=== PATIENT | female | born 1985 | race Caucasian/White ===

== ENCOUNTER 2017-01-21 21:00 | Inpatient (IN) | payer MEDICAID ==
--- NOTE | ~2017-01-21 | DS ---
Unit #: [id number] #: [id number] Patient: VIOLET COREAS [id number] [facility] [address] [place] [address] [id number] MR#: [id number] NAME: VIOLET COREAS ROOM: [facility] Age: 31 Sex: F Admission Date: 01/21/2017 : 1985 Discharge Date: 01/24/2017 Attending Physician: Federico Giron M.D. Primary Care Physician: Primary Care Physician No DISCHARGE SUMMARY REASON FOR ADMISSION Detox. DIAGNOSTIC STUDIES LABORATORY RESULTS: Urine drug screen positive for opioid. HOSPITAL COURSE The patient was admitted to inpatient unit on 01/21/2017 and discharged on 01/24/2017. The patient was treated on the inpatient unit with group therapy, individual therapy, medication management, detox protocol, and detox monitoring. The patient was responsive to treatment. Subsequently, the patient was discharged with a plan to follow up in outpatient clinic. DISCHARGE MEDICATIONS Flagyl 500 mg t.i.d. for 4 days for vaginal infection, Viibryd 40 mg daily for depression, Topamax 100 mg b.i.d. for mood stabilization, Desyrel 50 mg at bedtime for sleep. DISCHARGE DIAGNOSES Psychiatric: Opioid use disorder, severe, F11.20; major depressive disorder, recurrent, severe, F33.2. Secondary diagnosis: Deferred. Medical diagnosis: None. Stressors: Psychosocial stressors. DISCHARGE INSTRUCTIONS The patient to follow up in outpatient clinic as per criminal justice social worker. CONDITION ON DISCHARGE The patient was pleasant and cooperative. Denied any psychotic symptom or any suicidal ideation. PROGNOSIS Guarded. DIET AND ACTIVITY As tolerated. Dictated by... Unit #: [id number] #: [id number] Patient: VIOLET COREAS Krystal ShahC/francisco TD: 01/24/2017 23:15 JOB #: [id number] DISCHARGE SUMMARY Page 1 of 1 X Federico Giron MD DISCHARGE SUMMARY
--- NOTE | ~2017-01-21 | CO ---
Unit #: [id number] #: [id number] Patient: VIOLET COREAS [id number] [place] [address] [id number] MR#: [id number] NAME: VIOLET COREAS ROOM: P208 Age: 31 Sex: F Admission Date: 01/21/2017 : 1985 Attending Physician: Federico Giron M.D. Primary Care Physician: Primary Care Physician No Consultation Date: 01/22/2017 CONSULTATION REPORT CISCO Meza is a 31-year-old who complains of a vaginal discharge that is foul smelling. She describes it as "fishy." The patient was started on Flagyl 500 mg one p.o. t.i.d. x7 days. She knows to follow up with PCP. Dictated by... Michelle Stevens P.A.-C. for Krystal Emanuel/francisco TD: 01/25/2017 14:34 JOB #: [id number] CONSULTATION REPORT Page 1 of 1 X Michelle Stevens CONSULTATION REPORT
--- NOTE | ~2017-01-21 | PA ---
Unit #: [id number] #: [id number] Patient: VIOLET COREAS [id number] [place] [address] [id number] MR#: [id number] NAME: VIOLET COREAS ROOM: P208 Age: 31 Sex: F Admission Date: 01/21/2017 : 1985 Date of Assessment: Attending Physician: Federico Giron M.D. Admitting Physician: Federico Giron M.D. PSYCHIATRIC ASSESSMENT INFORMANTS The patient's reliability, fair; chart reliability, good. CHIEF COMPLAINT Detox from heroin, history of depression. HISTORY OF PRESENT ILLNESS Ms. Violet Coreas is a 31-year-old female, presented with the above-mentioned complaint. The patient has a history of previous inpatient treatment for substance abuse in [facility] [place]. The patient presented with heroin abuse, reportedly using 2 g a day. The patient reported relapse after 11 months of sobriety. The patient reports that she found out that involuntarily lost her paternal rights for her 2 daughters. The patient indicated that her insurance terminated and she was not able to get her medication. The patient reported multiple stress, feeling sad and depressed. The patient reported drinking vodka and whisky about one pint. The patient denied any suicidal ideation or plan. Denied any homicidal ideation or psychotic symptom. Needing inpatient admission at this time for psychiatric stabilization. PAST PSYCHIATRIC HISTORY Remarkable for history of outpatient treatment and inpatient treatment as mentioned. FAMILY HISTORY AND SOCIAL HISTORY Poor support system. No legal problem or any history of abuse. MEDICAL HISTORY Unremarkable for any chronic medical condition. Musculoskeletal; muscle strength and tone, no atrophy or abnormal movement. Gait normal. MEDICATION HISTORY The patient is on Viibryd 40 mg daily for depression, Topamax 100 mg b.i.d. for mood stabilization. ALLERGIES No known drug allergies. SUBSTANCE ABUSE HISTORY The patient reported tobacco use, age of onset 18; alcohol, age of onset 18; marijuana, age of onset 27; crack cocaine, age of onset 28; opioid, age of onset 27; longest period of sobriety 11 months and last sobriety in September. The patient reported history of withdrawal symptoms such as runny nose, nervousness, irritability, diarrhea, depressed mood, Unit #: [id number] #: [id number] Patient: VIOLET COREAS irritability, history of IV drug abuse. No history of HIV, hepatitis, or blackouts. REVIEW OF SYSTEMS HEENT: Eyes, clear. Ears, nose, mouth, and throat; clear. CARDIOVASCULAR: Unremarkable. RESPIRATORY: Unremarkable. GI: Unremarkable. : Unremarkable. SKIN: Unremarkable. LYMPH NODE: Unremarkable. NEUROLOGIC: Unremarkable. ENDOCRINE: Unremarkable. HEMATOLOGIC: Unremarkable. ALLERGIC/IMMUNOLOGIC: Unremarkable. MUSCULOSKELETAL: Muscle strength and tone, no atrophy or abnormal movement. Gait normal. MENTAL STATUS EXAMINATION CONSTITUTIONAL: Measurement of vital signs; temperature 98.3, pulse 64, respirations 17, blood pressure 94/54; height 5 feet 6 inches, weight 130 pounds. GENERAL APPEARANCE: The patient dressed casually, thin built. No facial deformity noted. MUSCULOSKELETAL: Please see above. PSYCHIATRIC EXAMINATION Description of speech; regular rate, coherent. Description of thought process, goal directed. Description of association, intact. Description of abnormal psychotic thinking; the patient denied any hallucination or delusions or any suicidal or homicidal ideation. Withdrawal symptoms from opioids. Description of the patient's judgment; concerning everyday activity, poor. Social situation, poor. Concerning psychiatric condition, poor. Complete mental status examination; oriented in time, place, and person. Recent and remote memory, fair. Attention span and concentration, fair. Language, able to name object and repeat phrases. Fund of knowledge, aware of current event and passive vocabulary intact. Mood and affect, sad and dysphoric. Insight and judgment, fair to poor. ASSETS AND LIABILITIES (1) . ADMITTING DIAGNOSES Psychiatric: Opioid use disorder, severe, F11.20; major depressive disorder, recurrent, severe, F33.2. Secondary diagnosis: Deferred. Medical diagnosis: None. Stressors: Psychosocial stressors. PSYCHIATRIC PLAN AND TREATMENT GOAL 1. Advised to admit the patient on the inpatient unit. Provide safe, supportive, and structured environment. 2. Ordered labs; CBC, CMP, UA, and UDS. Unit #: [id number] #: [id number] Patient: VIOLET COREAS 3. Precaution for detox protocol and detox monitoring. 4. Advised to resume home medication. The patient to attend all the programing on the inpatient unit with group therapy, individual therapy, family session. Treatment goal to attain euthymic mood, gain insight into her problem, and learn coping skills. DISCHARGE PLAN Plan to stabilize the patient and consider followup in outpatient program. ESTIMATED LENGTH OF STAY 5 days. ADDITIONAL JOB #: [id number] Dictated by... Krystal Shah/francisco TD: 01/23/2017 01:50 JOB #: [id number] PSYCHIATRIC ASSESSMENT Page 1 of 1 X Federico Giron MD X PSYCHIATRIC ASSESSMENT
--- NOTE | ~2017-01-21 | PN ---
Unit #: [id number] #: [id number] Patient: VIOLET AMOS [id number] [facility] [address] [place] [address] [id number] I MR#: [id number] NAME: VIOLET AMOS ROOM: P208 Age: 31 Sex: F Admission Date: 01/21/2017 : 1985 Attending Physician: Federico Giron M.D. Admitting Physician: Federico Giron M.D. Primary Care Physician: Primary Care Physician Cira ALVES NOTES DATE OF SERVICE 01/22/2017 DISCUSSION Violet Amos is a 31-year-old female seen on 01/22/2017. The patient interviewed, chart reviewed. Obtained information from nursing staff. The patient compliant, cooperative. Mood sad, dysphoric, anxious. He reported having withdrawal symptom. Anxious, nervous, restlessness. The patient's vital signs: 97.9, 79, 17, 122/82. Complete Review of Systems: Unremarkable. MENTAL STATUS EXAMINATION General Appearance: The patient dressed casually. Thin built. Attention span, concentration: Fair. Oriented in time, place, and person. Mood and affect: Sad, dysphoric. Speech: Regular rate. Thought process: Coherent. The patient denied any thoughts of harming self or others or any psychotic symptom. Recent and remote memory: Fair. Insight and judgment: Fair to slightly impaired. DIAGNOSES PSYCHIATRIC: Opiate use disorder, severe. Mood disorder. Major depressive disorder, recurrent. ASSESSMENT/PLAN Advised to continue with current medication and therapeutic protocol. If needed, consider further adjustment of medication. Dictated by... Krystal Shah/marcel TD: 01/23/2017 14:15 JOB #: [id number] Unit #: [id number] #: [id number] Patient: VIOLET AMOS MARIYAKAY PROGRESS NOTES Page 1 of 1 X Federico Giron MD PROGRESS NOTE
--- NOTE | ~2017-01-21 | HP ---
Unit #: [id number] #: [id number] Patient: VIOLET COREAS [id number] [place] [address] [id number] I MR#: [id number] NAME: VIOLET COREAS ROOM: P208 Age: 31 Sex: F Admission Date: 01/21/2017 : 1985 Attending Physician: Federico Giron M.D. Admitting Physician: Federico Giron M.D. Primary Care Physician: Primary Care Physician No HISTORY AND PHYSICAL HISTORY OF PRESENT ILLNESS Violet is a 31 year old admitted to [address] [place] [address] because of her drug use. She shoots heroin. PAST MEDICAL HISTORY 1. Long history of opioid abuse to include IV heroin. 2. History of anemia. PAST SURGICAL HISTORY Nothing reported. ALLERGIES No known drug allergies. SOCIAL HISTORY Smokes 1 pack per day. Denies alcohol. Admits to a history of opioid abuse to include IV heroin. FAMILY HISTORY Medically noncontributory. REVIEW OF SYSTEMS CONSTITUTIONAL: No fever or chills. HEENT: Denies any sore throat, ear pain or runny nose. CARDIOVASCULAR: Denies chest pain, irregular heart rhythm or palpitations. CHEST: Denies shortness of breath or cough. No hemoptysis. GASTROINTESTINAL: Denies nausea, vomiting, diarrhea or chronic constipation. ENDOCRINE: Denies history of increased thirst or urination. No recent significant weight loss or gain. GENITOURINARY: Denies dysuria, frequency, or hematuria. SKIN: Denies any rashes. HEMATOLOGIC: Denies history of increased bleeding or bruising. MUSCULOSKELETAL: Denies any hot, swollen joints. No generalized muscle pain. NEUROLOGIC: Denies problems with vision or speech. No frequent, severe headaches. No numbness, tingling or weakness in any extremities. Denies loss of bladder or bowel control. CURRENT MEDICATIONS 1. Detox protocol. 2. Viibryd 40 mg daily. 3. Topamax 100 mg b.i.d. Unit #: [id number] #: [id number] Patient: VIOLET COREAS PHYSICAL EXAMINATION GENERAL: Alert, well-nourished, in no apparent distress. VITAL SIGNS: Blood pressure 100/56, heart rate 80, respirations 16, temperature 98.6. WEIGHT: 130. HEIGHT: 5 feet 6 inches. SKIN: Warm and dry without rash or lesion. HEENT: Normocephalic. TMs not viewed. Oral and nasal passages clear. Conjunctivae clear. PERRLA. EOMs intact. NECK: Supple without lymphadenopathy or thyromegaly. HEART: Regular rate and rhythm without murmur. LUNGS: Clear. ABDOMEN: Soft, nontender. : Not done. EXTREMITIES: No evidence of cyanosis, clubbing or edema. Moves all without focal deficit. NEUROLOGICAL: Grossly within normal limits. Cranial Nerves: II: Visual finnegan are intact. III, IV AND : Extraocular movements are intact. Pupils are equal, round and reactive to light. V: Facial sensation is grossly normal. VII: Facial movements and expression are normal. VIII: Auditory acuity grossly intact. IX, X: Uvula is midline. Phonation is normal. XI: Patient shrugs shoulders and turns head normally. XII: Tongue protrudes in the midline. Sensory and Motor Function: Sensory and motor sensation is grossly normal. Motor: moves all extremities well. Coordination: Gait is normal. Deep Tendon Reflexes: Intact. IMPRESSION Psychiatric admission. RECOMMENDATIONS PSYCHIATRIC: Per psychiatrist. MEDICAL: See no contraindication to participate in facility's activities. MEDICAL PROGNOSIS Good. MEDICAL CONDITION Stable. Dictated by... Michelle Stevens PBobbyABobby-Adam. for Krystal Emanuel/xiao TD: 01/22/2017 18:49 JOB #: [id number] Unit #: [id number] #: [id number] Patient: VIOLET COREAS HISTORY AND PHYSICAL Page 1 of 1 X Michelle Stevens HISTORY AND PHYSICAL
--- NOTE | ~2017-01-21 | PA ---
Unit #: [id number] #: [id number] Patient: VIOLET COREAS [id number] [facility] [address] [place] [address] [id number] MR#: [id number] NAME: VIOLET COREAS ROOM: P208 Age: 31 Sex: F Admission Date: 01/21/2017 : 1985 Date of Assessment: Attending Physician: Federico Giron M.D. Admitting Physician: Federico Giron M.D. Primary Care Physician: Primary Care Physician No PSYCHIATRIC ASSESSMENT ADDENDUM Addendum for job number [id number] ASSETS AND LIABILITIES Assets, patient in good physical health, young age, good support system. Liabilities, history of depression, substance abuse. Dictated by... Krystal Shah/xiao TD: 01/24/2017 17:26 JOB #: [id number] PSYCHIATRIC ASSESSMENT Page 1 of 1 X Federico Giron MD PSYCHIATRIC ASSESSMENT
--- NOTE | ~2017-01-21 | PN ---
Unit #: [id number] #: [id number] Patient: VIOLET COREAS [id number] [facility] [address] [place] [address] [id number] MR#: [id number] NAME: VIOLET COREAS ROOM: P208 Age: 31 Sex: F Admission Date: 01/21/2017 : 1985 Attending Physician: Federico Giron M.D. Admitting Physician: Krystal Shah PROGRESS NOTES DATE OF SERVICE: 01/23/2017 DISCUSSION Ms. Meza is a 31-year-old female. The patient interviewed, chart reviewed, and obtained information from nursing staff. The patient was compliant and cooperative. Mood was sad and dysphoric. The patient was able to sleep good, compliant with medication, making progress. Complete review of systems unremarkable. MENTAL STATUS EXAMINATION General appearance, the patient dressed casually. Attention span and concentration, fair. Oriented in time, place, and person. Mood and affect, labile. Speech, monotone. Thought process, concrete. The patient denied any thoughts of harming self or others. Recent and remote memory, poor. Insight and judgment, poor. DIAGNOSES 1. Mood disorder, not otherwise specified. 2. Opioid use disorder, severe. ASSESSMENT AND PLAN Advised to continue with current medication and therapeutic protocol. If needed, consider further adjustment of medication. Dictated by... Krystal Shah/francisco TD: 01/24/2017 02:04 JOB #: [id number] Unit #: [id number] #: [id number] Patient: VIOLET COREAS PROGRESS NOTES Page 1 of 1 X Federico Giron MD PROGRESS NOTE
[2017-01-22 09:38] LABS: BASOPHIL# 0.1 X10e3 (0-0.3); BASOPHIL% 0.7 % (0-2.5); EOSINOPHIL# 0.4 X10e3 (0-0.7); EOSINOPHIL% 4.3 % (0.0-7.0); HEMATOCRIT 37.6 % (35.0-45.0); HEMOGLOBIN 11.7 gm/dL (12.0-16.0); LYMPHOCYTE# 3.7 X10e3 (1.0-3.5); LYMPHOCYTE% 41.7 % (17.0-45.0); MEAN CELL VOLUME 77.5 FL (83-96); MEAN CORPUSCULAR HEMOGLOBIN 24.1 PG (28-34); MEAN CORPUSCULAR HGB CONC 31.1 g/dL (30-36); MEAN PLATELET VOLUME 7.9 FL (6.5-11.5); MONOCYTE# 0.7 X10e3 (0-1.0); MONOCYTE% 7.6 % (3.0-12.0); NEUTROPHIL# 4.1 X10e3 (1.5-7.1); NEUTROPHIL% 45.7 % (40-75); PLATELET COUNT 333 X10e3 (140-420); RED BLOOD COUNT 4.84 X10e (3.90-5.30); RED CELL DISTRIBUTION WIDTH 15.7 % (11.0-15.5); WHITE BLOOD COUNT 8.9 X10e3 (4.0-10.5)
[2017-01-22 09:57] LABS: DIFF IND NO
[2017-01-22 10:35] LABS: THYROID STIMULATING HORMONE 1.13 uIU/ml (0.34-5.60)
[2017-01-22 10:41] LABS: ALBUMIN SERUM 3.6 g/dL (3.5-5.0); BILIRUBIN,TOTAL 0.7 mg/dL (0.2-2.0); CALCIUM SERUM 8.6 mg/dL (8.4-10.2); CREATININE SERUM 0.7 mg/dL (0.6-1.4); GLOM FILT RATE Estimated 115.5 mL/min (>60); PROTEIN TOTAL SERUM 6.2 g/dL (6.0-8.3)
[2017-01-22 10:42] LABS: FREE THYROXIN (T4) 0.78 ng/dL (0.58-1.64)
[2017-01-23 09:44] LABS: URINE APPEARANCE CLEAR; URINE BILIRUBIN NEG (NEG); URINE BLOOD NEG (NEG); URINE COLOR YELLOW; URINE GLUCOSE NEG (NEG); URINE KETONE NEG (NEG); URINE LEUKOCYTE ESTERASE 1+ (NEG); URINE NITRATE NEG (NEG); URINE PROTEIN NEG (NEG); URINE SPECIFIC GRAVITY 1.009 (1.003-1.035); URINE UROBILINOGEN 0.2 MG/DL (NEG)
[2017-01-23 09:46] LABS: URINE BACTERIA AUWI 1+ (NEGATIVE); URINE SQUAMOUS EPITHELIAL CELL FEW /[HPF]
[2017-01-23 10:45] LABS: AMPHETAMINE NEG (NEG); BARBITURATES NEG (NEG); BENZODIAZEPINES NEG (NEG); COCAINE NEG (NEG); MARIJUANA NEG (NEG); OPIATES POS (NEG); TRICYCLIC ANTIDEPRESSANTS NEG (NEG); U METHADONE NEG (NEG)
== END 2017-01-24 15:50 | disposition home or self-care (01) | DRG 897 ==
LOC: P2S 23:14
PROVIDERS: Psychiatry & Neurology Psychiatry
PROC: HZ2ZZZZ Detoxification Services for Substance Abuse Treatment (ICD-10-PCS; principal; 2017-01-21)
DX: F11.20 Opioid dependence, uncomplicated (principal); F33.2 Major depressive disorder, recurrent severe without psychotic features; F17.210 Nicotine dependence, cigarettes, uncomplicated; F39 Unspecified mood [affective] disorder
CPT/HCPCS: 80053; 80307; 81003; 84439; 84443; 84703; 85025; 86592